=== PATIENT | male | born 1970 | race Caucasian/White ===

== ENCOUNTER 2020-01-14 21:35 | Inpatient (IN) | payer MEDICAID, OTHER ==
[~2020-01-14] VITALS: Ht 172.7 cm; Wt 82.6 kg
[2020-01-14] MEDS ORDERED: SODIUM CHLORIDE 0.9% 1,000 ML IV ONE ×2 (22:11→23:15)
[2020-01-14] MEDS ORDERED: ONDANSETRON HCL 4MG/2ML INJ IV STA (22:11)
[2020-01-14] MEDS ORDERED: MORPHINE SULFATE 4 MG/ML CPJ (NOT FOR IM USE) IV STA (22:11)
[2020-01-14 22:24] LABS: BASOPHILS % 0.2 % (0.0-2.0); EOSINOPHILS % 0.5 % (0.0-5.0); HEMATOCRIT. 46.3 % (42.0-52.0); HEMOGLOBIN. 15.6 g/dL (14.0-18.0); LYMPHOCYTES % 7.9 % (20.0-50.0); MEAN CORPUSCULAR HEMOGLOBIN 29.9 pg (28.0-32.0); MEAN CORPUSCULAR VOLUME 88.6 fL (80.0-94.0); MEAN PLATELET VOLUME 9.7 fl (7.4-10.4); NEUTROPHILS % 82.4 % (40.0-76.0); PLATELET 220 x1000/uL (130-400); RED BLOOD CELL COUNT 5.22 mill/uL (4.7-6.1); RED CELL DISTRIBUTION WIDTH 14.6 % (11.6-14.6)
[2020-01-14 22:29] LABS: CHLORIDE 102 mEq/L (98-107)
[2020-01-15] VITALS (13 sets, daily range): BP systolic 88–114; BP diastolic 45–67
[2020-01-15] MEDS ORDERED: LORAZEPAM 2MG/ML CPJ IV PRN (07:30)
[2020-01-15] MEDS ORDERED: IPRATROPIUM/ALBUTEROL 0.5-3(2.5)MG/3ML NEB HHN PRN (07:30)
[2020-01-15] MEDS ORDERED: PIPERACILLIN/TAZ 3.375G PREMIX 50 ML IV SCH (07:30)
[2020-01-15] MEDS ORDERED: DOCUSATE SODIUM 100MG CAPSULE PO PRN (07:30)
[2020-01-15] MEDS ORDERED: HYDROCODONE/ACETAMINOPHEN 10/325MG TABLET PO PRN (07:30)
[2020-01-15] MEDS ORDERED: MAGNESIUM/ALUMINUM HYDROXIDE/SIMETHICONE 30ML UDC PO PRN (07:30)
[2020-01-15] MEDS ORDERED: ONDANSETRON HCL 4MG/2ML INJ IV PRN (07:30)
[2020-01-15] MEDS ORDERED: GUAIFENESIN 200MG/10ML SUGAR FREE UDC PO PRN (07:30)
[2020-01-15] MEDS ORDERED: MORPHINE SULFATE 2 MG/ML CPJ (NOT FOR IM USE) IV PRN (07:30)
[2020-01-15] MEDS ORDERED: HYDRALAZINE 20MG/ML VIAL IV PRN (07:30)
[2020-01-15] MEDS ORDERED: DIPHENHYDRAMINE 50MG/ML VIAL IV PRN (07:30)
[2020-01-15] MEDS ORDERED: CLONIDINE 0.1MG TABLET PO PRN (07:30)
[2020-01-15] MEDS ORDERED: ACETAMINOPHEN 325MG TABLET PO PRN (07:30)
[2020-01-15] MEDS ORDERED: PIPERACILLIN/TAZOBACTAM 3.375 G in DEXT 5% WATER 100 ML IV SCH (09:00)
[2020-01-15] MEDS: ENOXAPARIN 40MG/0.4ML SYR SUBCUT SCH (10:13)
[2020-01-15] MEDS: DEXT 5%/0.45% NACL 1000ML 1,000 ML IV SCH ×2 (10:14→21:44)
[2020-01-15 15:39] LABS: CREATINE KINASE 85 IU/L (39-308)
[2020-01-15 15:40] LABS: CREATINE KINASE MB FRACTION < 1.0 ng/mL (0.5-3.6)
[2020-01-15] MEDS: PIPERACILLIN/TAZOBACTAM 3.375 G in DEXT 5% WATER 100 ML IV SCH (17:13)
[2020-01-15] MEDS: SODIUM CHLORIDE 0.9% INJ 3ML FLUSH IVF SCH ×2 (17:13→21:44)
[2020-01-15 23:19] LABS: CREATINE KINASE 76 IU/L (39-308)
[2020-01-15 23:20] LABS: CREATINE KINASE MB FRACTION < 1.0 ng/mL (0.5-3.6)
[2020-01-16] VITALS (13 sets, daily range): BP systolic 76–129; BP diastolic 39–108
[2020-01-16] MEDS: PIPERACILLIN/TAZOBACTAM 3.375 G in DEXT 5% WATER 100 ML IV SCH ×5 (00:02→23:16)
[2020-01-16] MEDS: DEXT 5%/0.45% NACL 1000ML 1,000 ML IV SCH ×4 (02:27→21:01)
[2020-01-16 06:02] LABS: CHLORIDE 105 mEq/L (98-107)
[2020-01-16] MEDS: SODIUM CHLORIDE 0.9% INJ 3ML FLUSH IVF SCH ×3 (06:50→21:04)
[2020-01-16 06:57] LABS: BASOPHILS % 0.5 % (0.0-2.0); EOSINOPHILS % 5.7 % (0.0-5.0); LYMPHOCYTES % 25.8 % (20.0-50.0); MEAN CORPUSCULAR HEMOGLOBIN 30.2 pg (28.0-32.0); MEAN CORPUSCULAR VOLUME 88.1 fL (80.0-94.0); MEAN PLATELET VOLUME 9.8 fl (7.4-10.4); MONOCYTES % 10.3 % (2.0-8.0); NEUTROPHILS % 57.7 % (40.0-76.0); PLATELET 181 x1000/uL (130-400); RED BLOOD CELL COUNT 4.65 mill/uL (4.7-6.1); RED CELL DISTRIBUTION WIDTH 14.4 % (11.6-14.6)
[2020-01-16] MEDS: ENOXAPARIN 40MG/0.4ML SYR SUBCUT SCH (08:49)
[2020-01-16] MEDS ORDERED: POTASSIUM CHLORIDE INJ 40 MEQ in DEXT 5% WATER 250 ML IV ONE (16:30)
[2020-01-16] MEDS ORDERED: POTASSIUM CHLORIDE 20MEQ TABLET SR PO NR (19:00)
[2020-01-16] MEDS ORDERED: POTASSIUM CHLORIDE 20MEQ/PACKET PO NR (20:00)
[2020-01-17] VITALS (10 sets, daily range): BP systolic 94–111; BP diastolic 52–74
[2020-01-17] MEDS: DEXT 5%/0.45% NACL 1000ML 1,000 ML IV SCH ×2 (05:08→12:39)
[2020-01-17] MEDS: SODIUM CHLORIDE 0.9% INJ 3ML FLUSH IVF SCH ×2 (05:08→13:47)
[2020-01-17] MEDS: PIPERACILLIN/TAZOBACTAM 3.375 G in DEXT 5% WATER 100 ML IV SCH ×2 (05:08→12:05)
[2020-01-17 06:21] LABS: BASOPHILS % 0.6 % (0.0-2.0); EOSINOPHILS % 7.2 % (0.0-5.0); HEMATOCRIT. 40.8 % (42.0-52.0); HEMOGLOBIN. 13.5 g/dL (14.0-18.0); LYMPHOCYTES % 30.6 % (20.0-50.0); MEAN CORPUSCULAR HEMOGLOBIN 29.5 pg (28.0-32.0); MEAN CORPUSCULAR VOLUME 89.3 fL (80.0-94.0); MEAN PLATELET VOLUME 9.9 fl (7.4-10.4); MONOCYTES % 10.6 % (2.0-8.0); PLATELET 173 x1000/uL (130-400); RED BLOOD CELL COUNT 4.56 mill/uL (4.7-6.1); RED CELL DISTRIBUTION WIDTH 14.6 % (11.6-14.6)
[2020-01-17 07:04] LABS: CHLORIDE 107 mEq/L (98-107)
[2020-01-17] MEDS ORDERED: POTASSIUM CHLORIDE 20MEQ TABLET SR PO NR (08:00)
[2020-01-17] MEDS: ENOXAPARIN 40MG/0.4ML SYR SUBCUT SCH (08:44)
== END 2020-01-17 15:15 | disposition home or self-care (01) | DRG 282 ==
LOC: EDBD 21:35 → ER 21:35 → 5EST 01-15 01:20 → ENRESERV 01-15 02:42
PROVIDERS: ADMIT Internal Medicine; ATTEND Internal Medicine
DX: K85.90 Acute pancreatitis without necrosis or infection, unspecified (principal); R65.10 Systemic inflammatory response syndrome (SIRS) of non-infectious origin without acute organ dysfunction; R74.8 Abnormal levels of other serum enzymes; R74.0 Nonspecific elevation of levels of transaminase and lactic acid dehydrogenase [LDH]; R00.1 Bradycardia, unspecified; Z90.49 Acquired absence of other specified parts of digestive tract
CPT/HCPCS: 36415; 71045; 74176; 76705; 80048; 80053; 82550; 82553; 83880; 84484; 85025; 93005; 96374; 99285; J1650; J2060; J2270; J2405; J2543; J3480; J7030; J7060

== ENCOUNTER 2020-05-04 12:33 | Emergency (ER) | payer MEDICAID ==
[~2020-05-04] VITALS: Ht 152.4 cm; Wt 81.8 kg
[2020-05-04] MEDS ORDERED: ACETAMINOPHEN 325MG TABLET PO ONE (13:30)
[2020-05-04 17:06] VITALS: BP 110/68
== END 2020-05-04 17:06 | disposition home or self-care (01) ==
LOC: ER 12:33
DX: U07.1 COVID-19 (principal); Z90.49 Acquired absence of other specified parts of digestive tract
CPT/HCPCS: 71045; 99283; C9803; U0003

== ENCOUNTER 2020-05-05 19:12 | Inpatient (IN) | payer MEDICAID ==
[~2020-05-05] VITALS: Ht 167.6 cm; Wt 80.9 kg
[2020-05-05] MEDS ORDERED: ACETAMINOPHEN 325MG TABLET PO STA (19:49)
[2020-05-05] MEDS ORDERED: NITROGLYCERIN 0.4MG TABLET SL SL PRN (20:00)
[2020-05-05] MEDS ORDERED: CEFTRIAXONE 1 G PREMIX 50 ML IV ONE (20:00)
[2020-05-05] MEDS ORDERED: AZITHROMYCIN 500 MG in DEXT 5% WATER 250 ML IV ONE (20:00)
[2020-05-05] MEDS ORDERED: ASPIRIN 81MG TABLET PO ONE (20:00)
[2020-05-05 20:50] LABS: BASOPHILS % 0.4 % (0.0-2.0); EOSINOPHILS % 0.2 % (0.0-5.0); HEMATOCRIT. 47.2 % (42.0-52.0); LYMPHOCYTES % 10.3 % (20.0-50.0); MEAN CORPUSCULAR HEMOGLOBIN 29.3 pg (28.0-32.0); MEAN CORPUSCULAR VOLUME 86.4 fL (80.0-94.0); MEAN PLATELET VOLUME 9.7 fl (7.4-10.4); MONOCYTES % 10.5 % (2.0-8.0); NEUTROPHILS % 78.6 % (40.0-76.0); PLATELET 137 x1000/uL (130-400); RED BLOOD CELL COUNT 5.47 mill/uL (4.7-6.1); RED CELL DISTRIBUTION WIDTH 13.3 % (11.6-14.6)
[2020-05-05 20:53] LABS: CHLORIDE 107 mEq/L (98-107)
[2020-05-05 20:59] LABS: D-DIMER 0.47 mg/L FEU (<0.50); INR 1.1; PROTHROMBIN TIME 11.4 sec (9.6-11.0)
[2020-05-05 23:16] LABS: CLARITY URINE TURBID (CLEAR); COLOR URINE YELLOW (YELLOW); KETONES URINE 1+ (NEGATIVE); LEUKOCYTE ESTERASE URINE NEGATIVE (NEGATIVE); NITRITE URINE NEGATIVE (NEGATIVE); OCCULT BLOOD URINE 1+ (NEGATIVE); PH URINE 5.5 (4.5-8.0); PROTEIN URINE 3+ (NEGATIVE); SPECIFIC GRAVITY URINE 1.029 (1.005-1.030)
[2020-05-06 00:56] VITALS: BP 105/62
[2020-05-06] MEDS ORDERED: DOCUSATE SODIUM 100MG CAPSULE PO PRN (10:30)
[2020-05-06] MEDS ORDERED: ACETAMINOPHEN 325MG TABLET PO PRN (10:30)
[2020-05-06] MEDS ORDERED: ONDANSETRON HCL 4MG/2ML INJ IV PRN (10:30)
[2020-05-06] MEDS ORDERED: CEFTRIAXONE 1 G PREMIX 50 ML IV SCH (10:30)
[2020-05-06] MEDS ORDERED: MORPHINE SULFATE 2 MG/ML CPJ (NOT FOR IM USE) IV PRN (10:30)
[2020-05-06] MEDS ORDERED: CLONIDINE 0.1MG TABLET PO PRN (10:30)
[2020-05-06] MEDS ORDERED: MAGNESIUM/ALUMINUM HYDROXIDE/SIMETHICONE 30ML UDC PO PRN (10:30)
[2020-05-06] MEDS ORDERED: LORAZEPAM 2MG/ML CPJ IV PRN (10:30)
[2020-05-06] MEDS ORDERED: HYDRALAZINE 20MG/ML VIAL IV PRN (10:30)
[2020-05-06] MEDS ORDERED: IPRATROPIUM/ALBUTEROL 0.5-3(2.5)MG/3ML NEB HHN PRN (10:30)
[2020-05-06] MEDS ORDERED: ENOXAPARIN 40MG/0.4ML SYR SUBCUT SCH (11:00)
[2020-05-06] MEDS ORDERED: AZITHROMYCIN 500 MG in DEXT 5% WATER 250 ML IV SCH (11:00)
[2020-05-06] MEDS: SODIUM CHLORIDE 0.9% INJ 3ML FLUSH IVF SCH ×2 (16:12→22:00)
[2020-05-06] MEDS: DEXAMETHASONE 4MG TABLET PO SCH (21:18)
[2020-05-06] MEDS: ENOXAPARIN 80MG/0.8ML SYR SUBCUT SCH (21:19)
[2020-05-06] MEDS: ALBUTEROL 6.7GM HFA INHALER ORI SCH (22:23)
[2020-05-06 23:56] VITALS: BP 105/62
[2020-05-07 04:00] VITALS: BP 95/59
[2020-05-07 06:22] LABS: BASOPHILS % 0.1 % (0.0-2.0); HEMATOCRIT. 46.7 % (42.0-52.0); HEMOGLOBIN. 15.9 g/dL (14.0-18.0); LYMPHOCYTES % 12.3 % (20.0-50.0); MEAN CORPUSCULAR HEMOGLOBIN 29.3 pg (28.0-32.0); MEAN CORPUSCULAR VOLUME 85.9 fL (80.0-94.0); MEAN PLATELET VOLUME 9.6 fl (7.4-10.4); MONOCYTES % 3.2 % (2.0-8.0); NEUTROPHILS % 84.4 % (40.0-76.0); PLATELET 183 x1000/uL (130-400); RED BLOOD CELL COUNT 5.43 mill/uL (4.7-6.1); RED CELL DISTRIBUTION WIDTH 12.9 % (11.6-14.6)
[2020-05-07 06:32] LABS: CHLORIDE 102 mEq/L (98-107)
[2020-05-07] MEDS: SODIUM CHLORIDE 0.9% INJ 3ML FLUSH IVF SCH ×3 (07:28→21:15)
[2020-05-07 08:00] VITALS: BP 93/60
[2020-05-07] MEDS ORDERED: CEFTRIAXONE 1 G PREMIX 50 ML IV SCH (09:00)
[2020-05-07] MEDS: ALBUTEROL 6.7GM HFA INHALER ORI SCH ×3 (10:31→21:14)
[2020-05-07] MEDS: DEXAMETHASONE 4MG TABLET PO SCH (10:31)
[2020-05-07] MEDS: ENOXAPARIN 80MG/0.8ML SYR SUBCUT SCH ×2 (10:31→21:14)
[2020-05-07] MEDS: AZITHROMYCIN 500 MG in DEXT 5% WATER 250 ML IV SCH (11:53)
[2020-05-07 12:00] VITALS: BP 102/79
[2020-05-07 16:00] VITALS: BP 88/55
[2020-05-07 16:30] VITALS: BP 98/65
[2020-05-07 20:00] VITALS: BP 112/70
[2020-05-08] VITALS: BP 103/69
[2020-05-08] MEDS: DIPHENHYDRAMINE 50MG/ML VIAL IV PRN (00:59)
[2020-05-08] MEDS: ALBUTEROL 6.7GM HFA INHALER ORI SCH ×4 (02:25→20:55)
[2020-05-08 04:00] VITALS: BP 101/55
[2020-05-08] MEDS: SODIUM CHLORIDE 0.9% INJ 3ML FLUSH IVF SCH ×3 (05:45→20:57)
[2020-05-08 08:00] VITALS: BP 96/59
[2020-05-08] MEDS: ENOXAPARIN 80MG/0.8ML SYR SUBCUT SCH ×2 (08:22→20:55)
[2020-05-08] MEDS: DEXAMETHASONE 4MG TABLET PO SCH (08:23)
[2020-05-08] MEDS ORDERED: DEXTROSE 50% WATER 50ML SYRINGE IV PRN (08:45)
[2020-05-08] MEDS: CEFTRIAXONE 1,000 MG in DEXTROSE 5% WATER 50 ML IV SCH (08:50)
[2020-05-08] MEDS: INSULIN LISPRO 100 UNITS/ML SUBCUT SCH ×4 (08:50→20:56)
[2020-05-08] MEDS ORDERED: CEFTRIAXONE 1,000 MG in DEXTROSE 5% WATER 50 ML IV SCH (09:00)
[2020-05-08] MEDS: AZITHROMYCIN 500 MG in DEXT 5% WATER 250 ML IV SCH (09:57)
[2020-05-08] MEDS: GUAIFENESIN 200MG/10ML SUGAR FREE UDC PO PRN (11:51)
[2020-05-08 12:00] VITALS: BP 105/63
[2020-05-08] MEDS: BLOOD SUGAR DIAGNOSTIC STRIP TEST SCH ×3 (12:06→20:56)
[2020-05-08] MEDS ORDERED: INSULIN LISPRO 100 UNITS/ML SUBCUT SCH (13:10)
[2020-05-08 16:00] VITALS: BP 92/54
[2020-05-08 16:43] LABS: BG BASE EXCESS 3.1 mmol/L (-2.0-2.0); BG CARBOXYHEMOGLOBIN 0.2 % (0.5-1.5); BG DEOXYHEMOGLOBIN 2.5 % (0.0-5.0); BG FRACTION INSPIRED OXYGEN 100; BG HCO3 ACT 26.6 mmol/L (22.0-26.0); BG METHEMOGLOBIN 0.3 % (0.0-1.5); BG OXYGEN SATURATION 97.5 % (92.0-98.5); BG PCO2 37.1 mmHg (35.0-45.0); BG PH 7.473 (7.350-7.450); BG PO2 100.6 mmHg (75.0-100.0); BG SAMPLE SITE RIGHT BRACHIAL; BG TOTAL HEMOGLOBIN 16.4 g/dL (12.0-18.0); BG VENT MODE MASK - NRB
[2020-05-08] MEDS ORDERED: REMDESIVIR 200 MG in SODIUM CHLORIDE 0.9% 250 ML IV NR (17:30)
[2020-05-08] MEDS ORDERED: ALBUMIN HUMAN 25GM/500ML (5%) IV NR (17:30)
[2020-05-08 20:00] VITALS: BP 105/63
[2020-05-09] VITALS (7 sets, daily range): BP systolic 91–110; BP diastolic 49–74
[2020-05-09] MEDS: ALBUTEROL 6.7GM HFA INHALER ORI SCH ×4 (02:16→21:15)
[2020-05-09] MEDS: SODIUM CHLORIDE 0.9% INJ 3ML FLUSH IVF SCH ×3 (06:13→20:43)
[2020-05-09] MEDS: INSULIN LISPRO 100 UNITS/ML SUBCUT SCH ×4 (06:13→20:42)
[2020-05-09] MEDS: BLOOD SUGAR DIAGNOSTIC STRIP TEST SCH ×4 (06:13→20:43)
[2020-05-09 08:25] LABS: CHLORIDE 102 mEq/L (98-107)
[2020-05-09] MEDS: GUAIFENESIN 200MG/10ML SUGAR FREE UDC PO PRN (09:10)
[2020-05-09] MEDS: CEFTRIAXONE 1,000 MG in DEXTROSE 5% WATER 50 ML IV SCH (09:10)
[2020-05-09] MEDS: DEXAMETHASONE 4MG TABLET PO SCH (09:10)
[2020-05-09] MEDS: HYDROCODONE/ACETAMINOPHEN 10/325MG TABLET PO PRN (09:10)
[2020-05-09] MEDS: ENOXAPARIN 80MG/0.8ML SYR SUBCUT SCH ×2 (09:11→20:45)
[2020-05-09] MEDS: AZITHROMYCIN 500 MG in DEXT 5% WATER 250 ML IV SCH (12:06)
[2020-05-09] MEDS: DIPHENHYDRAMINE 50MG/ML VIAL IV PRN (13:48)
[2020-05-09] MEDS: REMDESIVIR 100 MG in SODIUM CHLORIDE 0.9% 250 ML IV SCH (17:29)
[2020-05-10] VITALS (7 sets, daily range): BP systolic 94–108; BP diastolic 43–70
[2020-05-10] MEDS: ALBUTEROL 6.7GM HFA INHALER ORI SCH ×4 (02:30→21:23)
[2020-05-10] MEDS: SODIUM CHLORIDE 0.9% INJ 3ML FLUSH IVF SCH ×3 (06:37→21:22)
[2020-05-10] MEDS: BLOOD SUGAR DIAGNOSTIC STRIP TEST SCH ×5 (06:37→21:22)
[2020-05-10 06:38] LABS: CHLORIDE 101 mEq/L (98-107)
[2020-05-10] MEDS: INSULIN LISPRO 100 UNITS/ML SUBCUT SCH ×4 (08:12→21:00)
[2020-05-10] MEDS: DEXAMETHASONE 4MG TABLET PO SCH (08:13)
[2020-05-10] MEDS: CEFTRIAXONE 1,000 MG in DEXTROSE 5% WATER 50 ML IV SCH (08:13)
[2020-05-10] MEDS: ENOXAPARIN 80MG/0.8ML SYR SUBCUT SCH ×2 (08:23→21:22)
[2020-05-10] MEDS: AZITHROMYCIN 500 MG in DEXT 5% WATER 250 ML IV SCH (09:06)
[2020-05-10] MEDS: GUAIFENESIN 200MG/10ML SUGAR FREE UDC PO PRN ×2 (12:34→16:50)
[2020-05-10] MEDS: HYDROCODONE/ACETAMINOPHEN 10/325MG TABLET PO PRN ×3 (12:35→21:59)
[2020-05-10] MEDS: REMDESIVIR 100 MG in SODIUM CHLORIDE 0.9% 250 ML IV SCH (16:38)
[2020-05-10] MEDS: DIPHENHYDRAMINE 50MG/ML VIAL IV PRN (23:33)
[2020-05-11] VITALS: BP 97/70
[2020-05-11] MEDS: ALBUTEROL 6.7GM HFA INHALER ORI SCH ×4 (02:46→21:19)
[2020-05-11 04:00] VITALS: BP 105/68
[2020-05-11] MEDS: SODIUM CHLORIDE 0.9% INJ 3ML FLUSH IVF SCH ×3 (05:25→21:19)
[2020-05-11] MEDS: GUAIFENESIN 200MG/10ML SUGAR FREE UDC PO PRN ×2 (06:38→21:18)
[2020-05-11] MEDS: INSULIN LISPRO 100 UNITS/ML SUBCUT SCH ×4 (07:25→21:17)
[2020-05-11 07:51] LABS: CHLORIDE 99 mEq/L (98-107)
[2020-05-11] MEDS: CEFTRIAXONE 1,000 MG in DEXTROSE 5% WATER 50 ML IV SCH (08:44)
[2020-05-11] MEDS: DEXAMETHASONE 4MG TABLET PO SCH (08:44)
[2020-05-11] MEDS: ENOXAPARIN 80MG/0.8ML SYR SUBCUT SCH ×2 (08:44→21:19)
[2020-05-11 09:38] VITALS: BP 103/62
[2020-05-11] MEDS: AZITHROMYCIN 500 MG in DEXT 5% WATER 250 ML IV SCH (10:01)
[2020-05-11] MEDS ORDERED: DOPAMINE 400MG/250ML PREMIX 250 ML IV PRN (11:00)
[2020-05-11] MEDS: BLOOD SUGAR DIAGNOSTIC STRIP TEST SCH ×3 (12:00→21:19)
[2020-05-11 12:31] VITALS: BP 97/63
[2020-05-11 12:33] LABS: BG BASE EXCESS 0.6 mmol/L (-2.0-2.0); BG CARBOXYHEMOGLOBIN 0.5 % (0.5-1.5); BG FRACTION INSPIRED OXYGEN 99.9; BG HCO3 ACT 23.9 mmol/L (22.0-26.0); BG METHEMOGLOBIN 0.5 % (0.0-1.5); BG PH 7.453 (7.350-7.450); BG PO2 160.2 mmHg (75.0-100.0); BG SAMPLE SITE RIGHT RADIAL; BG TOTAL HEMOGLOBIN 16.2 g/dL (12.0-18.0); BG VENT MODE MASK - NRB
[2020-05-11 15:22] LABS: T4 FREE 1.34 ng/dL (0.76-1.46)
[2020-05-11] MEDS: REMDESIVIR 100 MG in SODIUM CHLORIDE 0.9% 250 ML IV SCH (16:30)
[2020-05-11 16:49] VITALS: BP 99/62
[2020-05-11 20:00] VITALS: BP 98/61
[2020-05-11] MEDS: DIPHENHYDRAMINE 50MG/ML VIAL IV PRN (21:18)
[2020-05-12] VITALS (7 sets, daily range): BP systolic 88–104; BP diastolic 54–69
[2020-05-12] MEDS: ALBUTEROL 6.7GM HFA INHALER ORI SCH ×5 (02:58→20:13)
[2020-05-12] MEDS: SODIUM CHLORIDE 0.9% INJ 3ML FLUSH IVF SCH ×3 (05:42→20:35)
[2020-05-12] MEDS: BLOOD SUGAR DIAGNOSTIC STRIP TEST SCH ×4 (06:37→20:34)
[2020-05-12] MEDS: ENOXAPARIN 80MG/0.8ML SYR SUBCUT SCH ×2 (08:06→20:35)
[2020-05-12] MEDS: CEFTRIAXONE 1,000 MG in DEXTROSE 5% WATER 50 ML IV SCH (08:07)
[2020-05-12] MEDS: DEXAMETHASONE 2MG TABLET PO SCH (08:07)
[2020-05-12] MEDS: INSULIN LISPRO 100 UNITS/ML SUBCUT SCH ×4 (08:08→20:34)
[2020-05-12] MEDS: GUAIFENESIN 200MG/10ML SUGAR FREE UDC PO PRN (08:19)
[2020-05-12 09:44] LABS: CHLORIDE 101 mEq/L (98-107)
[2020-05-12] MEDS: REMDESIVIR 100 MG in SODIUM CHLORIDE 0.9% 250 ML IV SCH (16:25)
[2020-05-13 00:43] VITALS: BP 92/56
[2020-05-13] MEDS: ALBUTEROL 6.7GM HFA INHALER ORI SCH ×4 (02:18→20:42)
[2020-05-13 04:00] VITALS: BP 92/56
[2020-05-13] MEDS: SODIUM CHLORIDE 0.9% INJ 3ML FLUSH IVF SCH ×3 (05:22→20:43)
[2020-05-13] MEDS: BLOOD SUGAR DIAGNOSTIC STRIP TEST SCH ×4 (06:26→20:43)
[2020-05-13] MEDS: INSULIN LISPRO 100 UNITS/ML SUBCUT SCH ×4 (06:26→20:43)
[2020-05-13 08:02] VITALS: BP 93/63
[2020-05-13] MEDS: CEFTRIAXONE 1,000 MG in DEXTROSE 5% WATER 50 ML IV SCH (08:10)
[2020-05-13] MEDS: DEXAMETHASONE 2MG TABLET PO SCH (08:10)
[2020-05-13] MEDS: ENOXAPARIN 80MG/0.8ML SYR SUBCUT SCH ×2 (08:10→20:42)
[2020-05-13 11:57] VITALS: BP 96/58
[2020-05-13 16:09] VITALS: BP 92/62
[2020-05-13 20:00] VITALS: BP 99/64
[2020-05-13] MEDS: DIPHENHYDRAMINE 50MG/ML VIAL IV PRN (20:42)
[2020-05-14] VITALS: BP 99/60
[2020-05-14] MEDS: ALBUTEROL 6.7GM HFA INHALER ORI SCH ×4 (02:43→21:27)
[2020-05-14 04:00] VITALS: BP 90/55
[2020-05-14] MEDS: SODIUM CHLORIDE 0.9% INJ 3ML FLUSH IVF SCH ×3 (05:18→21:27)
[2020-05-14 08:00] VITALS: BP 85/46
[2020-05-14] MEDS: ENOXAPARIN 80MG/0.8ML SYR SUBCUT SCH ×2 (08:25→21:26)
[2020-05-14] MEDS: BLOOD SUGAR DIAGNOSTIC STRIP TEST SCH ×4 (08:25→21:47)
[2020-05-14] MEDS: DEXAMETHASONE 2MG TABLET PO SCH (08:26)
[2020-05-14] MEDS: INSULIN LISPRO 100 UNITS/ML SUBCUT SCH ×4 (08:27→21:53)
[2020-05-14 12:00] VITALS: BP 100/58
[2020-05-14] MEDS ORDERED: ALBUMIN HUMAN 25GM/100ML (25%) IV NR (13:00)
[2020-05-14] MEDS ORDERED: SODIUM CHLORIDE 0.9% 500 ML IV ONE (14:00)
[2020-05-14 16:00] VITALS: BP 90/44
[2020-05-14 20:00] VITALS: BP 96/46
[2020-05-15] VITALS: BP 89/41
[2020-05-15] MEDS: ALBUTEROL 6.7GM HFA INHALER ORI SCH ×4 (03:50→21:32)
[2020-05-15 04:00] VITALS: BP 98/61
[2020-05-15] MEDS: SODIUM CHLORIDE 0.9% INJ 3ML FLUSH IVF SCH ×3 (06:27→21:34)
[2020-05-15 06:39] LABS: CHLORIDE 102 mEq/L (98-107)
[2020-05-15 06:52] LABS: BASOPHILS % 0.2 % (0.0-2.0); EOSINOPHILS % 0.5 % (0.0-5.0); HEMATOCRIT. 46.7 % (42.0-52.0); HEMOGLOBIN. 15.4 g/dL (14.0-18.0); LYMPHOCYTES % 17.9 % (20.0-50.0); MEAN CORPUSCULAR HEMOGLOBIN 28.7 pg (28.0-32.0); MEAN PLATELET VOLUME 8.8 fl (7.4-10.4); MONOCYTES % 9.8 % (2.0-8.0); NEUTROPHILS % 71.6 % (40.0-76.0); PLATELET 337 x1000/uL (130-400); RED BLOOD CELL COUNT 5.36 mill/uL (4.7-6.1); RED CELL DISTRIBUTION WIDTH 13.2 % (11.6-14.6)
[2020-05-15] MEDS: BLOOD SUGAR DIAGNOSTIC STRIP TEST SCH ×4 (07:40→21:33)
[2020-05-15 08:00] VITALS: BP 97/72
[2020-05-15] MEDS: INSULIN LISPRO 100 UNITS/ML SUBCUT SCH ×4 (08:28→21:33)
[2020-05-15] MEDS: DEXAMETHASONE 2MG TABLET PO SCH (08:28)
[2020-05-15] MEDS: GUAIFENESIN 200MG/10ML SUGAR FREE UDC PO PRN ×2 (08:28→13:00)
[2020-05-15] MEDS: ENOXAPARIN 80MG/0.8ML SYR SUBCUT SCH ×2 (08:35→21:33)
[2020-05-15 12:00] VITALS: BP 92/56
[2020-05-15] MEDS ORDERED: POTASSIUM CHLORIDE 20MEQ TABLET SR PO NR (14:45)
[2020-05-15] MEDS ORDERED: SODIUM CHLORIDE 0.9% 500 ML IV ONE (15:30)
[2020-05-15 16:00] VITALS: BP_SYST 89; BP_SYST 92; BP_SYST 96; BP_DIAS 53; BP_DIAS 54; BP_DIAS 60
[2020-05-15 20:00] VITALS: BP 98/54
[2020-05-16] VITALS: BP 106/80
[2020-05-16] MEDS: ALBUTEROL 6.7GM HFA INHALER ORI SCH ×2 (02:33→10:05)
[2020-05-16 04:00] VITALS: BP_SYST 91; BP_SYST 96; BP_DIAS 58; BP_DIAS 62
[2020-05-16] MEDS: SODIUM CHLORIDE 0.9% INJ 3ML FLUSH IVF SCH (06:09)
[2020-05-16] MEDS: BLOOD SUGAR DIAGNOSTIC STRIP TEST SCH ×2 (06:09→11:56)
[2020-05-16 08:00] VITALS: BP 98/64
[2020-05-16] MEDS: DEXAMETHASONE 2MG TABLET PO SCH (08:21)
[2020-05-16] MEDS: ENOXAPARIN 80MG/0.8ML SYR SUBCUT SCH (08:22)
[2020-05-16] MEDS: INSULIN LISPRO 100 UNITS/ML SUBCUT SCH ×2 (08:23→12:20)
[2020-05-16 11:26] VITALS: BP 97/65
[2020-05-16 12:01] VITALS: BP 97/65
[2020-05-17] MEDS ORDERED: DEXAMETHASONE 4MG TABLET PO SCH (09:00)
== END 2020-05-16 13:50 | disposition home or self-care (01) | DRG 720 ==
LOC: ER 19:12 → 7WST 05-06 03:30 → CANRESERV 05-06 21:02 → ENRESERV 05-06 21:02
PROVIDERS: ADMIT Internal Medicine; ATTEND Internal Medicine
PROC: 30233K1 Transfusion of Nonautologous Frozen Plasma into Peripheral Vein, Percutaneous Approach (ICD-10-PCS; principal; 2020-05-09)
DX: A41.89 Other specified sepsis (principal); U07.1 COVID-19; J96.01 Acute respiratory failure with hypoxia; J12.89 Other viral pneumonia; D68.59 Other primary thrombophilia; N39.0 Urinary tract infection, site not specified; D72.810 Lymphocytopenia; E11.9 Type 2 diabetes mellitus without complications; R65.20 Severe sepsis without septic shock; I95.9 Hypotension, unspecified; R00.1 Bradycardia, unspecified; R31.9 Hematuria, unspecified; Z90.49 Acquired absence of other specified parts of digestive tract
CPT/HCPCS: 36415; 36600; 71045; 80048; 80053; 81003; 82375; 82805; 82962; 83605; 83735; 83880; 84145; 84439; 84443; 84481; 84484; 85025; 85379; 85384; 86850; 86900; 93005; 94640; 99285; J0456; J0696; J1200; J1650; J1815; J7050; J7060; J8540; P9017; P9041; P9047; Q9957